=== PATIENT | male | born 1965 | race African-American/Black ===

== ENCOUNTER → 2017-06-27 | Outpatient (CLI) | payer OTHER | END | disposition home or self-care (01) | LOC: RAD 09:22 | DX: M47.896 Other spondylosis, lumbar region (principal) | CPT/HCPCS: 72100 ==

== ENCOUNTER 2017-12-21 18:19 | Emergency (ER) | payer OTHER ==
[~2017-12-21] VITALS: Ht 195.6 cm; Wt 97.6 kg
[2017-12-21] MEDS ORDERED: KEFLEX500 MG PO (19:35)
[2017-12-21 20:56] VITALS: BP 103/55
== END 2017-12-21 20:57 ==
LOC: EME 18:19
PROVIDERS: Emergency Medicine
DX: S21.249A Puncture wound with foreign body of unspecified back wall of thorax without penetration into thoracic cavity, initial encounter (principal); T75.4XXA Electrocution, initial encounter; S80.01XA Contusion of right knee, initial encounter; S00.81XA Abrasion of other part of head, initial encounter; T65.893A Toxic effect of other specified substances, assault, initial encounter; H57.13 Ocular pain, bilateral; Y35.491A Legal intervention involving other sharp objects, law enforcement official injured, initial encounter; Y35.29 Legal intervention involving other gas; Y35.891A Legal intervention involving other specified means, law enforcement official injured, initial encounter
CPT/HCPCS: 73564; 82948